=== PATIENT | male | born 1950 | race Caucasian/White ===

== ENCOUNTER 2016-10-11 14:24 | Emergency (ER) | payer OTHER ==
[~2016-10-11] VITALS: Ht 185.4 cm; Wt 79.4 kg
[2016-10-11 17:48] VITALS: BP 112/62
== END 2016-10-11 17:48 | disposition home or self-care (01) ==
LOC: ED 14:24
DX: S22.31XA Fracture of one rib, right side, initial encounter for closed fracture (principal); W18.39XA Other fall on same level, initial encounter; Y93.89 Activity, other specified; Y99.8 Other external cause status; Y92.89 Other specified places as the place of occurrence of the external cause